=== PATIENT | female | born 1940 | race Caucasian/White ===

== ENCOUNTER 2018-02-27 08:54 | Outpatient (CLI) | payer MEDICARE, BC ==
--- NOTE | 2018-02-27 09:39 | RAD ---
RIGHT SHOULDER THREE VIEWS: History: Right shoulder pain. 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 No fracture, dislocation, or bony dest ruction is seen. POS: JOEL
== END 2018-02-27 08:55 | disposition home or self-care (01) ==
LOC: RAD-FRANK 08:54
PROVIDERS: ATTEND Nurse Practitioner Family
DX: M25.511 Pain in right shoulder (principal); M19.011 Primary osteoarthritis, right shoulder

== ENCOUNTER 2018-06-12 06:39 | Day surgery (SDC) | payer MEDICARE, BC ==
[2018-06-12] MEDS ORDERED: Lidocaine 1% (PF) 30 ML VIAL ONE (06:51)
[2018-06-12] MEDS ORDERED: Iopamidol 370 76% 100 ML VIAL ONE (08:15)
[2018-06-12] MEDS ORDERED: Fentanyl 100 MCG/2 ML VIAL ONE (08:43)
[2018-06-12] MEDS ORDERED: Midazolam HCl 2 mg/2 ml Vial ONE (08:43)
== END 2018-06-12 12:48 | disposition home or self-care (01) ==
LOC: CCL 06:39
PROVIDERS: ATTEND Internal Medicine Cardiovascular Disease
PROC: 4A023N7 Measurement of Cardiac Sampling and Pressure, Left Heart, Percutaneous Approach (ICD-10-PCS; principal; 2018-06-12)
PROC: B2111ZZ Fluoroscopy of Multiple Coronary Arteries using Low Osmolar Contrast (ICD-10-PCS; 2018-06-12)
DX: I25.10 Atherosclerotic heart disease of native coronary artery without angina pectoris (principal); I42.0 Dilated cardiomyopathy; E11.9 Type 2 diabetes mellitus without complications; E78.5 Hyperlipidemia, unspecified; I44.7 Left bundle-branch block, unspecified; Z79.84 Long term (current) use of oral hypoglycemic drugs; Z79.899 Other long term (current) drug therapy; Z88.8 Allergy status to other drugs, medicaments and biological substances
CPT/HCPCS: 93458; 99152; C1769; J1644; J2001; J2250; J3010

== ENCOUNTER 2018-12-11 10:03 | Outpatient (CLI) | payer MEDICARE, BC ==
--- NOTE | 2018-12-11 11:11 | RAD ---
THREE VIEWS OF THE SMALL TOE: HISTORY: Fifth digit pain. FINDINGS: Three views of the right small toe show a fracture of the distal aspect of the proximal phalanx of th e small toe. This is extraarticular. Soft tissue swelling is seen. IMPRESSION: Proximal phalanx fracture of the small toe. POS: [facility]
== END 2018-12-11 10:04 | disposition home or self-care (01) ==
LOC: RAD-FRANK 10:03
PROVIDERS: ATTEND Nurse Practitioner Family
DX: M79.674 Pain in right toe(s) (principal); S92.511A Displaced fracture of proximal phalanx of right lesser toe(s), initial encounter for closed fracture

== ENCOUNTER 2021-02-16 15:15 | Outpatient (CLI) | payer MEDICARE, BC | END 2021-02-16 15:16 | disposition home or self-care (01) | LOC: RAD-FRANK 15:15 | PROVIDERS: ATTEND Nurse Practitioner Family | DX: M25.512 Pain in left shoulder (principal) ==

== ENCOUNTER 2022-03-28 10:00 | Emergency (ER) | payer OTHER, MEDICARE ==
[2022-03-28 12:13] LABS: Bacteria/HPF None Seen HPF (None Seen); Bilirubin Negative (Negative); Blood, Urine Negative (Negative); Clarity Clear (Clear); Glucose, Urine (Dipstick) Normal (Negative); Ketone, Urine Negative (Negative); Leukocyte 25 Leu/uL (Negative); Nitrite Negative (Negative); Protein, Urine (Dipstick) Negative (Neg-Trace); RBC/HPF 0-3 HPF (0-3); Specific Gravity, Urine 1.012 (1.002-1.036); Squamous Epithelial 0-3 HPF (0-3); Urobilinogen Normal mg/dL (Less than 2); WBC/HPF 0-3 HPF (0-3)
[2022-03-28 12:22] LABS: #Lymphocytes 1.2 thou/uL (1.20-3.40); #Monocytes 0.8 thou/uL (0.11-0.59); #Neutrophils 3.4 thou/uL (1.40-6.50); %Basophils 0.6 % (0.0-1.0); %Eosinophils 0.7 % (0.0-10.0); %Lymphocytes 22.4 % (21.0-51.0); %Monocytes 14.9 % (0.0-10.0); %Neutrophils 61.4 % (42.0-75.0); Hemoglobin 14.6 g/dL (12.0-16.0); Mean Corpuscular HGB CONC 33.5 g/dL (32.0-36.0); Mean Corpuscular Hemoglobin 29.7 pg (27.0-31.0); Mean Corpuscular Volume 88.5 fL (78.0-98.0); Mean Platelet Volume 7.5 fL (7.4-10.4); Platelet Count 272 thou/uL (130-400); RBC Distribution Width 12.9 % (11.5-14.5); White Blood Cell (WBC) Count 5.5 thou/uL (4.8-10.8)
[2022-03-28 12:34] LABS: ALT (SGPT) 8 U/L (8-55); AST (SGOT) 13 U/L (5-34); Albumin 3.9 g/dL (3.4-4.8); Alkaline Phosphatase 66 U/L (40-110); Anion Gap 14 mmol/L (10-20); BUN (Urea Nitrogen) 15 mg/dL (9.8-20.1); Bilirubin, Total 0.5 mg/dL (0.2-1.2); Calc. Creatinine Clearance 0 mL/min (70-130); Calcium 9.4 mg/dL (7.8-10.44); Carbon Dioxide 24 mmol/L (23-31); Chloride 104 mmol/L (98-107); Estimated GFR 45; Globulin 3.2 g/dL (2.4-3.5); Glucose 123 mg/dL (83-110); Magnesium 1.9 mg/dL (1.6-2.6); Potassium 3.9 mmol/L (3.5-5.1); Protein, Total 7.1 g/dL (5.8-8.1); Sodium 138 mmol/L (136-145)
== END 2022-03-28 13:54 | disposition home or self-care (01) ==
LOC: ERS 10:00
DX: R41.3 Other amnesia (principal); V89.2XXA Person injured in unspecified motor-vehicle accident, traffic, initial encounter; Y92.410 Unspecified street and highway as the place of occurrence of the external cause
CPT/HCPCS: 36415; 70450; 80053; 81003; 81015; 83735; 84443; 85025; 93005

== ENCOUNTER 2022-05-21 15:52 | Outpatient (CLI) | payer MEDICARE | END 2022-05-21 15:53 | disposition home or self-care (01) | LOC: RAD-FRANK 15:52 | PROVIDERS: ATTEND Nurse Practitioner Family | DX: M54.2 Cervicalgia (principal); M47.812 Spondylosis without myelopathy or radiculopathy, cervical region | CPT/HCPCS: 72040 ==

== ENCOUNTER 2024-06-19 09:59 | Inpatient (IN) | payer MEDICARE ==
[2024-06-19] MEDS ORDERED: HYDROcodone/Acetaminophen 5/325 mg Tablet ONE (10:29)
[2024-06-19] MEDS ORDERED: LORazepam 2 MG/ML SYR.(CARPUJECT) ONE (10:59)
[2024-06-19 11:08] LABS: Hemoglobin 10.1 g/dL (12.0-16.0); Mean Corpuscular HGB CONC 32.6 g/dL (32.0-36.0); Mean Corpuscular Hemoglobin 27.3 pg (27.0-31.0); Mean Corpuscular Volume 83.8 fL (78.0-98.0); Mean Platelet Volume 10.8 fL (7.4-10.4); Platelet Count 203 10x3/uL (130-400)
[2024-06-19 11:35] LABS: #Basophils 0.05 10x3/uL (0.0-0.2); #Eosinophils Less than 0.03 10x3/uL (0.0-0.7); %Basophils 0.3 % (0.0-1.0); %Eosinophils 0.1 % (0.0-10.0); %Monocytes 30.1 % (0.0-10.0); %Neutrophils 60.3 % (42.0-75.0); Band 7 % (5-11); Lymphocytes 8 % (21-51); Monocytes 28 % (0-10); Neutrophil 56 % (42-75); Plasma Cells 0 % (0-0); Platelet Adequacy Comment Appears Adequate; Polychromasia SLIGHT = 2-3 cells (100X) (0-2/hpf); Total Cell Count 100
[2024-06-19 12:07] LABS: Bacteria/HPF 3+ HPF (None Seen); Bilirubin Negative (Negative); Blood, Urine Negative (Negative); CAUTI Indications for Culture Pelvic or flank pain; Clarity Turbid (Clear); Glucose, Urine (Dipstick) Normal (Negative); Ketone, Urine Negative (Negative); Leukocyte 25 Leu/uL (Negative); Nitrite 2+ (Negative); Protein, Urine (Dipstick) 30 mg/dL (Neg-Trace); RBC/HPF 0-3 HPF (0-3); Specific Gravity, Urine 1.005 (1.002-1.036); Squamous Epithelial 0-3 HPF (0-3); Urobilinogen Normal mg/dL (Less than 2)
[2024-06-19 12:08] LABS: ALT (SGPT) 7 U/L (8-55); AST (SGOT) 9 U/L (5-34); Albumin 2.4 g/dL (3.4-4.8); Alkaline Phosphatase 67 U/L (40-110); Anion Gap 15 mmol/L (10-20); BUN (Urea Nitrogen) 19 mg/dL (9.8-20.1); Bilirubin, Total 0.4 mg/dL (0.2-1.2); CK (CPK) 23 U/L (29-168); Calc. Creatinine Clearance 0 mL/min (70-130); Calcium 8.2 mg/dL (7.8-10.44); Carbon Dioxide 29 mmol/L (23-31); Chloride 95 mmol/L (98-107); Estimated GFR 35; Globulin 4.5 g/dL (2.4-3.5); Glucose 205 mg/dL (83-110); Potassium 2.1 mmol/L (3.5-5.1); Protein, Total 6.9 g/dL (5.8-8.1); Sodium 137 mmol/L (136-145)
[2024-06-19 12:11] LABS: Urine Culture Reflex No No
[2024-06-19] MEDS ORDERED: cefTRIAXone (ROCEPHIN) 1 GM VIAL ONE (12:32)
[2024-06-19] MEDS ORDERED: Sodium Chloride 0.9% 100 ML ONE (12:32)
[2024-06-19 14:29] LABS: Lactic Acid 1.27 mmol/L (0.5-2.2)
[2024-06-19] MEDS ORDERED: Ondansetron ODT 4 MG TAB PO PRN (14:35)
[2024-06-19] MEDS ORDERED: Ondansetron PF 4 MG/2 ML Vial IVP PRN (14:35)
[2024-06-19] MEDS ORDERED: hydrALAZINE 20 MG/ML VIAL SLOW IVP PRN (14:35)
[2024-06-19] MEDS: Enoxaparin 40 MG (0.4 mL) SYRINGE SC SCH (16:20)
[2024-06-19] MEDS: Sodium Chloride 0.9% 1,000 ML IV SCH (16:20)
[2024-06-19 17:41] VITALS: BMI 16.8
[2024-06-19] MEDS: Potassium Chloride 20 MEQ TAB PO SCH ×2 (17:42→20:18)
[2024-06-19] MEDS ORDERED: traMADol HCl 50 MG TAB PO PRN (18:11)
[2024-06-19] MEDS: Famotidine 20 MG TAB PO SCH (20:17)
[2024-06-19] MEDS: Senokot S 8.6-50 MG TAB PO SCH (20:18)
[2024-06-19] MEDS: Divalproex Sodium 250 MG ER.TAB PO SCH (20:18)
[2024-06-19 21:24] LABS: Anion Gap 13 mmol/L (10-20); BUN (Urea Nitrogen) 17 mg/dL (9.8-20.1); Calc. Creatinine Clearance 27 mL/min (70-130); Calcium 7.5 mg/dL (7.8-10.44); Carbon Dioxide 25 mmol/L (23-31); Chloride 102 mmol/L (98-107); Estimated GFR 42; Glucose 184 mg/dL (83-110); Potassium 2.7 mmol/L (3.5-5.1); Sodium 137 mmol/L (136-145)
[2024-06-19] MEDS: Lorazepam 1 MG TAB PO PRN (22:06)
[2024-06-20 05:34] LABS: Hematocrit 25.7 % (36.0-47.0); Hemoglobin 8.3 g/dL (12.0-16.0); Mean Corpuscular HGB CONC 32.3 g/dL (32.0-36.0); Mean Corpuscular Hemoglobin 27.1 pg (27.0-31.0); Mean Platelet Volume 10.9 fL (7.4-10.4); Platelet Count 177 10x3/uL (130-400); Red Blood Cell (RBC) Count 3.06 mill/uL (4.20-5.40)
[2024-06-20 05:47] LABS: Hemoglobin A1c 5.8 % (4.0-6.0)
[2024-06-20 05:48] LABS: Anion Gap 12 mmol/L (10-20); BUN (Urea Nitrogen) 16 mg/dL (9.8-20.1); Calc. Creatinine Clearance 33 mL/min (70-130); Calcium 7.4 mg/dL (7.8-10.44); Carbon Dioxide 24 mmol/L (23-31); Chloride 106 mmol/L (98-107); Estimated GFR 53; Glucose 120 mg/dL (83-110); Magnesium 1.6 mg/dL (1.6-2.6); Potassium 2.7 mmol/L (3.5-5.1); Sodium 139 mmol/L (136-145)
[2024-06-20 06:00] LABS: Band 7 % (5-11); Eosinophils 1 % (0-10); Hypochromia SLIGHT = 6-15 cells HPF (0-5); Lymphocytes 6 % (21-51); Monocytes 22 % (0-10); Neutrophil 64 % (42-75); Platelet Adequacy Comment Platelets Normal; Poikilocytosis SLIGHT = 6-15 cells HPF (0-5); Polychromasia SLIGHT = 2-3 cells HPF (0-2)
[2024-06-20] MEDS ORDERED: CEFAZOLIN 2 GM in Sodium Chloride 0.9% 100 ML IVPB SCH ×2 (06:00→14:00)
[2024-06-20] MEDS ORDERED: Lidocaine 2% PF 5 ML VIAL ONE (07:29)
[2024-06-20] MEDS ORDERED: Rocuronium Bromide 10 MG/ML (10ML VIAL) ONE (07:29)
[2024-06-20] MEDS ORDERED: PROPOFOL 0 ML ONE (07:29)
[2024-06-20] MEDS ORDERED: fentaNYL 50 mcg/mL 1 mL Vial ONE ×2 (07:30→09:30)
[2024-06-20] MEDS ORDERED: Electrolyte Replacement Protocol 1 EACH FS SCH (08:00)
[2024-06-20] MEDS ORDERED: Potassium Chloride 20 MEQ (100 mL) BAG ONE (08:12)
[2024-06-20] MEDS ORDERED: Sodium Chloride 0.9% 100 ML ONE (08:16)
[2024-06-20] MEDS ORDERED: cefTRIAXone (ROCEPHIN) 1 GM VIAL ONE (08:16)
[2024-06-20] MEDS ORDERED: Electrolyte Replacement Protocol FS PRN (08:30)
[2024-06-20] MEDS ORDERED: Ondansetron PF 4 MG/2 ML Vial ONE (08:52)
[2024-06-20] MEDS: Mirtazapine 15 MG TAB PO SCH (09:00)
[2024-06-20] MEDS: Sertraline 25 MG TAB PO SCH (09:00)
[2024-06-20] MEDS: Polyethylene Glycol 3350 17 GM Packet PO SCH (09:00)
[2024-06-20] MEDS: Enoxaparin 40 MG (0.4 mL) SYRINGE SC SCH (09:00)
[2024-06-20] MEDS ORDERED: SUGAMMADEX SODIUM 200 MG/2 ML VIAL ONE (09:22)
[2024-06-20] MEDS: cefTRIAXone\\ROCEPHIN 1 GM in Sodium Chloride 0.9% 100 ML IVPB SCH (10:55)
[2024-06-20] MEDS: Potassium Chloride 20 MEQ in Premix 1 BAG IVPB SCH ×2 (11:19→13:54)
[2024-06-20] MEDS: Magnesium 2 GM/50 ML(in water) 2 GM in Premix 1 BAG IVPB SCH (11:19)
[2024-06-20] MEDS: NS 0.9% w/ 20 MEQ KCL 1,000 ML/1,000 ML BAG IV SCH (11:31)
[2024-06-20 13:30] VITALS: BMI 16.8
[2024-06-20] MEDS: Morphine 2 MG/ML VIAL SLOW IVP PRN (16:59)
[2024-06-20] MEDS: Acetaminophen 500 MG TAB PO PRN (17:00)
[2024-06-20 18:34] LABS: Potassium 4.2 mmol/L (3.5-5.1)
[2024-06-21 04:52] LABS: Anion Gap 15 mmol/L (10-20); BUN (Urea Nitrogen) 17 mg/dL (9.8-20.1); Calc. Creatinine Clearance 32 mL/min (70-130); Calcium 7.3 mg/dL (7.8-10.44); Carbon Dioxide 19 mmol/L (23-31); Chloride 113 mmol/L (98-107); Estimated GFR 51; Glucose 142 mg/dL (83-110); Magnesium 2.2 mg/dL (1.6-2.6); Potassium 4.7 mmol/L (3.5-5.1); Sodium 142 mmol/L (136-145)
[2024-06-21 04:54] LABS: Hematocrit 25.5 % (36.0-47.0); Hemoglobin 7.8 g/dL (12.0-16.0); Mean Corpuscular HGB CONC 30.6 g/dL (32.0-36.0); Mean Corpuscular Hemoglobin 26.9 pg (27.0-31.0); Mean Corpuscular Volume 87.9 fL (78.0-98.0); Mean Platelet Volume 11.6 fL (7.4-10.4); Platelet Count 103 10x3/uL (130-400); RBC Distribution Width 16.5 % (11.5-14.5)
[2024-06-21 05:25] LABS: Band 6 % (5-11); Hypochromia SLIGHT = 6-15 cells HPF (0-5); Lymphocytes 3 % (21-51); Monocytes 46 % (0-10); Neutrophil 45 % (42-75); Platelet Adequacy Comment Platelets Decreased; Polychromasia SLIGHT = 2-3 cells HPF (0-2)
[2024-06-21] MEDS: traMADol HCl 50 MG TAB PO PRN ×2 (09:10→22:47)
[2024-06-22 05:48] LABS: Anion Gap 12 mmol/L (10-20); BUN (Urea Nitrogen) 21 mg/dL (9.8-20.1); Calc. Creatinine Clearance 31 mL/min (70-130); Carbon Dioxide 22 mmol/L (23-31); Chloride 117 mmol/L (98-107); Estimated GFR 50; Glucose 142 mg/dL (83-110); Potassium 3.6 mmol/L (3.5-5.1); Sodium 147 mmol/L (136-145)
[2024-06-22 05:53] LABS: Hematocrit 22.2 % (36.0-47.0); Hemoglobin 6.6 g/dL (12.0-16.0); Mean Corpuscular HGB CONC 29.7 g/dL (32.0-36.0); Mean Corpuscular Hemoglobin 26.7 pg (27.0-31.0); Mean Corpuscular Volume 89.9 fL (78.0-98.0); Mean Platelet Volume 11.3 fL (7.4-10.4); Platelet Count 170 10x3/uL (130-400); RBC Distribution Width 16.7 % (11.5-14.5); Red Blood Cell (RBC) Count 2.47 mill/uL (4.20-5.40)
[2024-06-22 06:25] LABS: Band 5 % (5-11); Elliptocytes SLIGHT = 2-5 cells HPF (0-1); Eosinophils 1 % (0-10); Hypochromia SLIGHT = 6-15 cells HPF (0-5); Lymphocytes 6 % (21-51); Metamyelocyte 3 % (0-0); Microcytosis SLIGHT = 6-15 cells HPF (0-5); Monocytes 22 % (0-10); Myelocyte 1 % (0-0); Neutrophil 62 % (42-75); Platelet Adequacy Comment Platelets Normal; Polychromasia SLIGHT = 2-3 cells HPF (0-2)
[2024-06-22] MEDS: Potassium Bicarbonate/Cit Ac 20 MEQ TAB PO SCH (09:39)
[2024-06-22] MEDS: Megestrol Acetate 800 MG/20 ML UDCUP PO SCH (11:12)
[2024-06-22] MEDS: Furosemide 20 MG (2 mL) VIAL SLOW IVP SCH (17:37)
[2024-06-23 05:44] LABS: Hematocrit 40.6 % (36.0-47.0); Hemoglobin 11.9 g/dL (12.0-16.0); Mean Corpuscular HGB CONC 29.3 g/dL (32.0-36.0); Mean Corpuscular Hemoglobin 27.8 pg (27.0-31.0); Mean Corpuscular Volume 94.9 fL (78.0-98.0); Mean Platelet Volume 12.2 fL (7.4-10.4); Platelet Count 124 10x3/uL (130-400); RBC Distribution Width 15.9 % (11.5-14.5); Red Blood Cell (RBC) Count 4.28 mill/uL (4.20-5.40)
[2024-06-23 05:55] LABS: Anion Gap 17 mmol/L (10-20); BUN (Urea Nitrogen) 23 mg/dL (9.8-20.1); Calc. Creatinine Clearance 34 mL/min (70-130); Carbon Dioxide 19 mmol/L (23-31); Chloride 114 mmol/L (98-107); Estimated GFR 56; Glucose 133 mg/dL (83-110); Sodium 146 mmol/L (136-145)
[2024-06-23 06:38] LABS: Band 7 % (5-11); Burr Cells SLIGHT = 2-5 cells HPF (0-1); Large Platelets 4.8 % (0-5); Lymphocytes 1 % (21-51); Metamyelocyte 5 % (0-0); Monocytes 4 % (0-10); Myelocyte 4 % (0-0); Neutrophil 79 % (42-75); Ovalocytes SLIGHT = 2-5 cells HPF (0-1); Platelet Adequacy Comment Platelets Normal; Polychromasia SLIGHT = 2-3 cells HPF (0-2); Promyelocytes 1 % (0-0); Tear Drops SLIGHT = 2-5 cells HPF (0-1)
[2024-06-23] MEDS: Megestrol Acetate 800 MG/20 ML UDCUP PO SCH (08:57)
[2024-06-23] MEDS: Aspirin 81 mg Enteric Coated Tablet PO SCH (08:57)
[2024-06-23 15:32] VITALS: BP 136/79; TEMP 97.3
== END 2024-06-23 16:30 | DRG 521 ==
LOC: ERS 09:59 → SURG A 14:35
PROVIDERS: ADMIT Family Medicine; ATTEND Internal Medicine
PROC: 0SRS0JA Replacement of Left Hip Joint, Femoral Surface with Synthetic Substitute, Uncemented, Open Approach (ICD-10-PCS; principal; 2024-06-20)
DX: S72.012A Unspecified intracapsular fracture of left femur, initial encounter for closed fracture (principal); E43 Unspecified severe protein-calorie malnutrition; G93.41 Metabolic encephalopathy; N39.0 Urinary tract infection, site not specified; N17.9 Acute kidney failure, unspecified; D62 Acute posthemorrhagic anemia; E87.20 Acidosis, unspecified; W18.30XA Fall on same level, unspecified, initial encounter; F03.90 Unspecified dementia, unspecified severity, without behavioral disturbance, psychotic disturbance, mood disturbance, and anxiety; E78.5 Hyperlipidemia, unspecified; F41.9 Anxiety disorder, unspecified; Z98.41 Cataract extraction status, right eye; Z98.42 Cataract extraction status, left eye; Z98.890 Other specified postprocedural states; Z87.891 Personal history of nicotine dependence; E87.6 Hypokalemia; I12.9 Hypertensive chronic kidney disease with stage 1 through stage 4 chronic kidney disease, or unspecified chronic kidney disease; E11.22 Type 2 diabetes mellitus with diabetic chronic kidney disease; N18.30 Chronic kidney disease, stage 3 unspecified; Z66 Do not resuscitate
CPT/HCPCS: 36415; 36416; 36430; 51701; 71045; 72170; 80048; 80053; 81001; 82550; 83036; 83605; 83735; 85025; 85060; 86850; 86900; 86901; 87040; 93005; 93010; 96361; 96365; 96375; C1776; J0696; J1650; J1940; J2060; J2272; J2405; J2704; J3010; J3475; J3480; J7030; P9016